=== PATIENT | male | born 1970 | race African-American/Black ===

== ENCOUNTER 2020-07-20 16:31 | Emergency (ER) | payer OTHER, SELFPAY ==
[~2020-07-20] VITALS: Ht 172.7 cm; Wt 104.8 kg
[2020-07-20 16:33] VITALS: BP 125/90; Ht 172.7 cm; Wt 104.8 kg
== END 2020-07-20 17:36 | disposition home or self-care (01) ==
LOC: ED 16:31
DX: U07.1 COVID-19 (principal); I11.0 Hypertensive heart disease with heart failure; I50.9 Heart failure, unspecified; Z98.890 Other specified postprocedural states
CPT/HCPCS: U0003